=== PATIENT | male | born 1965 | race African-American/Black ===

== ENCOUNTER 2017-04-24 08:52 | Emergency (ER) | payer OTHER ==
[2017-04-24] MEDS ORDERED: methylPREDNISolone Acetate 40 mg/ml Vial ONE (09:17)
== END 2017-04-24 09:39 | disposition home or self-care (01) ==
LOC: NAV ERS 08:52
DX: T49.8X5A Adverse effect of other topical agents, initial encounter (principal); R60.0 Localized edema; E11.9 Type 2 diabetes mellitus without complications; E78.5 Hyperlipidemia, unspecified; E78.00 Pure hypercholesterolemia, unspecified; I10 Essential (primary) hypertension; F43.10 Post-traumatic stress disorder, unspecified; F17.220 Nicotine dependence, chewing tobacco, uncomplicated; Z79.84 Long term (current) use of oral hypoglycemic drugs; Z79.899 Other long term (current) drug therapy
CPT/HCPCS: 96372; J1030

== ENCOUNTER 2017-12-27 07:43 | Emergency (ER) | payer OTHER ==
[2017-12-27] MEDS ORDERED: Ondansetron HCl/PF 4 MG/2 ML Vial ONE (08:13)
[2017-12-27] MEDS ORDERED: NS 0.9% w/ 20 MEQ KCL 1,000 ML ONE (08:14)
[2017-12-27] MEDS ORDERED: Acetaminophen 500 MG TAB ONE (08:31)
[2017-12-27 08:50] LABS: #Basophils 0.1 thou/uL (0.0-0.2); #Eosinphils 0.1 thou/uL (0.0-0.7); #Lymphocytes 1.9 thou/uL (1.20-3.40); #Monocytes 0.5 thou/uL (0.11-0.59); #Neutrophils 6.2 thou/uL (1.40-6.50); %Basophils 1.3 % (0.0-1.0); %Eosinophils 1.4 % (0.0-10.0); %Lymphocytes 21.8 % (21.0-51.0); %Monocytes 5.3 % (0.0-10.0); %Neutrophils 70.1 % (42.0-75.0); Hemoglobin 14.9 g/dL (14.0-18.0); Mean Corpuscular HGB CONC 32.5 g/dL (32.0-36.0); Mean Corpuscular Hemoglobin 29.2 pg (27.0-31.0); Mean Platelet Volume 10.9 fL (7.4-10.4); Platelet Count 208 thou/uL (130-400); RBC Distribution Width 11.9 % (11.5-14.5); Red Blood Cell (RBC) Count 5.09 mill/uL (4.70-6.10); White Blood Cell (WBC) Count 8.9 thou/uL (4.8-10.8)
[2017-12-27 08:59] LABS: CKMB 1.1 ng/mL (0-6.6); Troponin I Less than 0.010 ng/mL (< 0.028)
[2017-12-27 09:03] LABS: ALT (SGPT) 27 U/L (8-55); AST (SGOT) 23 U/L (5-34); Alkaline Phosphatase 82 U/L (40-150); Anion Gap 14 mmol/L (10-20); BUN (Urea Nitrogen) 15 mg/dL (8.4-25.7); Bilirubin, Total 0.2 mg/dL (0.2-1.2); CK (CPK) 281 U/L (30-200); Calc. Creatinine Clearance 0 mL/min (70-130); Calcium 9.1 mg/dL (7.8-10.44); Carbon Dioxide 23 mmol/L (22-29); Chloride 103 mmol/L (98-107); Estimated GFR-MDRD Greater than 90; Globulin 3.4 g/dL (2.4-3.5); Glucose 242 mg/dL (70-105); Protein, Total 7.4 g/dL (6.0-8.3); Sodium 136 mmol/L (136-145)
== END 2017-12-27 09:45 | disposition home or self-care (01) ==
LOC: NAV ERS 07:43
DX: E11.65 Type 2 diabetes mellitus with hyperglycemia (principal); E78.5 Hyperlipidemia, unspecified; I10 Essential (primary) hypertension; F43.10 Post-traumatic stress disorder, unspecified; F17.220 Nicotine dependence, chewing tobacco, uncomplicated; Z79.84 Long term (current) use of oral hypoglycemic drugs; Z79.899 Other long term (current) drug therapy
CPT/HCPCS: 36416; 80053; 82010; 82550; 82553; 83880; 84484; 85025; 93005; 96361; 96374; J2405

== ENCOUNTER 2019-11-29 21:31 | Emergency (ER) | payer OTHER ==
[2019-11-29] MEDS ORDERED: Ibuprofen 200 MG TAB ONE (21:47)
[2019-11-29] MEDS ORDERED: methylPREDNISolone Acetate 40 mg/ml Vial ONE (22:00)
[2019-11-29] MEDS ORDERED: Azithromycin 250 MG TAB ONE (22:12)
== END 2019-11-29 22:21 | disposition home or self-care (01) ==
LOC: NAV ERS 21:31
DX: J20.9 Acute bronchitis, unspecified (principal); J42 Unspecified chronic bronchitis; E11.9 Type 2 diabetes mellitus without complications; E78.5 Hyperlipidemia, unspecified; E78.00 Pure hypercholesterolemia, unspecified; I10 Essential (primary) hypertension; F43.10 Post-traumatic stress disorder, unspecified; F17.210 Nicotine dependence, cigarettes, uncomplicated; Z79.899 Other long term (current) drug therapy; Z79.84 Long term (current) use of oral hypoglycemic drugs
CPT/HCPCS: 36416; 87081; 87430; 87804; 94640; 96372; J1030; J7620

== ENCOUNTER 2020-06-13 02:29 | Emergency (ER) | payer OTHER ==
[2020-06-13] MEDS ORDERED: Proparacaine 0.5% Opth 15 ML BOT ONE (02:52)
[2020-06-13] MEDS ORDERED: Fluorescein Opthalmic Strip ONE (02:52)
[2020-06-13] MEDS ORDERED: HYDROcodone/Acetaminophen 5/325 mg Tablet ONE (03:12)
[2020-06-13] MEDS ORDERED: Erythromycin Base 0.5% Oint 1 GM TUBE ONE (03:12)
== END 2020-06-13 03:40 | disposition home or self-care (01) ==
LOC: NAV ERS 02:29
DX: S05.02XA Injury of conjunctiva and corneal abrasion without foreign body, left eye, initial encounter (principal); E11.9 Type 2 diabetes mellitus without complications; E78.5 Hyperlipidemia, unspecified; E78.00 Pure hypercholesterolemia, unspecified; I10 Essential (primary) hypertension; F43.10 Post-traumatic stress disorder, unspecified; F17.220 Nicotine dependence, chewing tobacco, uncomplicated; Z79.899 Other long term (current) drug therapy
CPT/HCPCS: 99283

== ENCOUNTER 2021-03-12 11:14 | Emergency (ER) | payer MEDICARE, OTHER ==
[2021-03-12] MEDS ORDERED: Ondansetron ODT 4 MG TAB ONE (11:56)
== END 2021-03-12 12:06 | disposition home or self-care (01) ==
LOC: NAV ERS 11:14
DX: K02.9 Dental caries, unspecified (principal); E11.9 Type 2 diabetes mellitus without complications; E78.5 Hyperlipidemia, unspecified; E78.00 Pure hypercholesterolemia, unspecified; I10 Essential (primary) hypertension; Z87.891 Personal history of nicotine dependence; Z79.899 Other long term (current) drug therapy
CPT/HCPCS: 99282; Q0162

== ENCOUNTER 2021-06-13 07:34 | Emergency (ER) | payer MEDICARE | END 2021-06-13 08:05 | disposition home or self-care (01) | LOC: NAV ERS 07:34 | DX: S90.562A Insect bite (nonvenomous), left ankle, initial encounter (principal); L08.9 Local infection of the skin and subcutaneous tissue, unspecified; E11.9 Type 2 diabetes mellitus without complications; E78.5 Hyperlipidemia, unspecified; E78.00 Pure hypercholesterolemia, unspecified; I10 Essential (primary) hypertension; Z87.891 Personal history of nicotine dependence; Z79.84 Long term (current) use of oral hypoglycemic drugs; W57.XXXA Bitten or stung by nonvenomous insect and other nonvenomous arthropods, initial encounter | CPT/HCPCS: 99282 ==

== ENCOUNTER 2021-06-21 02:52 | Emergency (ER) | payer MEDICARE, OTHER ==
[2021-06-21] MEDS ORDERED: traMADol HCl 50 MG TAB ONE (03:13)
[2021-06-21 03:25] LABS: #Basophils 0.1 thou/uL (0.0-0.2); #Eosinphils 0.1 thou/uL (0.0-0.7); #Lymphocytes 2.7 thou/uL (1.20-3.40); #Monocytes 0.7 thou/uL (0.11-0.59); %Basophils 1.3 % (0.0-1.0); %Eosinophils 1.4 % (0.0-10.0); %Lymphocytes 31.6 % (21.0-51.0); %Monocytes 7.9 % (0.0-10.0); %Neutrophils 57.9 % (42.0-75.0); Hemoglobin 15.1 g/dL (14.0-18.0); Mean Corpuscular HGB CONC 32.4 g/dL (32.0-36.0); Mean Corpuscular Hemoglobin 30.6 pg (27.0-31.0); Mean Corpuscular Volume 94.4 fL (78.0-98.0); Mean Platelet Volume 11.8 fL (7.4-10.4); Platelet Count 190 thou/uL (130-400); RBC Distribution Width 11.7 % (11.5-14.5); Red Blood Cell (RBC) Count 4.93 mill/uL (4.70-6.10); White Blood Cell (WBC) Count 8.7 thou/uL (4.8-10.8)
[2021-06-21 03:40] LABS: Anion Gap 16 mmol/L (10-20); BUN (Urea Nitrogen) 7 mg/dL (8.4-25.7); Calc. Creatinine Clearance 0 mL/min (70-130); Calcium 9.2 mg/dL (7.8-10.44); Carbon Dioxide 26 mmol/L (22-29); Chloride 99 mmol/L (98-107); Glucose 385 mg/dL (70-105); Sodium 137 mmol/L (136-145); Uric Acid 4.7 mg/dL (3.5-7.2)
== END 2021-06-21 05:30 | disposition home or self-care (01) ==
LOC: NAV ERS 02:52
DX: M76.62 Achilles tendinitis, left leg (principal); L03.116 Cellulitis of left lower limb; E11.9 Type 2 diabetes mellitus without complications; E78.5 Hyperlipidemia, unspecified; E78.00 Pure hypercholesterolemia, unspecified; I10 Essential (primary) hypertension; Z87.891 Personal history of nicotine dependence; Z79.84 Long term (current) use of oral hypoglycemic drugs; Z79.899 Other long term (current) drug therapy
CPT/HCPCS: 36415; 80048; 84550; 85025

== ENCOUNTER 2021-08-07 19:03 | Emergency (ER) | payer MEDICARE, OTHER ==
[2021-08-07] MEDS ORDERED: Sodium Chloride 0.9% 1,000 ML ONE (19:30)
[2021-08-07] MEDS ORDERED: Ondansetron PF 4 MG/2 ML Vial ONE (19:30)
[2021-08-07 19:41] LABS: #Basophils 0.1 thou/uL (0.0-0.2); #Eosinphils 0.1 thou/uL (0.0-0.7); #Lymphocytes 0.8 thou/uL (1.20-3.40); #Monocytes 0.5 thou/uL (0.11-0.59); %Basophils 1.5 % (0.0-1.0); %Eosinophils 0.7 % (0.0-10.0); %Lymphocytes 9.6 % (21.0-51.0); %Monocytes 5.7 % (0.0-10.0); %Neutrophils 82.6 % (42.0-75.0); Hemoglobin 16.2 g/dL (14.0-18.0); Mean Corpuscular HGB CONC 32.3 g/dL (32.0-36.0); Mean Corpuscular Hemoglobin 30.6 pg (27.0-31.0); Mean Corpuscular Volume 94.6 fL (78.0-98.0); Mean Platelet Volume 10.6 fL (7.4-10.4); Platelet Count 202 thou/uL (130-400); RBC Distribution Width 11.5 % (11.5-14.5); Red Blood Cell (RBC) Count 5.29 mill/uL (4.70-6.10); White Blood Cell (WBC) Count 8.5 thou/uL (4.8-10.8)
[2021-08-07 19:59] LABS: ALT (SGPT) 17 U/L (8-55); AST (SGOT) 17 U/L (5-34); Albumin 4.2 g/dL (3.5-5.0); Alkaline Phosphatase 82 U/L (40-110); Anion Gap 17 mmol/L (10-20); BUN (Urea Nitrogen) 9 mg/dL (8.4-25.7); Bilirubin, Total 0.4 mg/dL (0.2-1.2); Calc. Creatinine Clearance 0 mL/min (70-130); Calcium 9.4 mg/dL (7.8-10.44); Carbon Dioxide 25 mmol/L (22-29); Chloride 98 mmol/L (98-107); Globulin 3.5 g/dL (2.4-3.5); Glucose 307 mg/dL (70-105); Potassium 3.9 mmol/L (3.5-5.1); Protein, Total 7.7 g/dL (6.0-8.3); Sodium 136 mmol/L (136-145)
[2021-08-07] MEDS ORDERED: Metoclopramide HCl 10 MG/2 ML VIAL ONE (21:41)
[2021-08-07] MEDS ORDERED: Sodium Chloride 0.9% 100 ML ONE (21:41)
[2021-08-07] MEDS ORDERED: diphenhydrAMINE 50 MG/ML VIAL ONE (21:41)
[2021-08-08 18:13] LABS: SARS-CoV-2 PCR by NAA Not Detected (NotDetected)
== END 2021-08-07 23:05 | disposition home or self-care (01) ==
LOC: NAV ERS 19:03
DX: E86.0 Dehydration (principal); B34.9 Viral infection, unspecified; E11.9 Type 2 diabetes mellitus without complications; E78.5 Hyperlipidemia, unspecified; I10 Essential (primary) hypertension; E78.00 Pure hypercholesterolemia, unspecified; Z20.822 Contact with and (suspected) exposure to COVID-19; Z87.891 Personal history of nicotine dependence; Z79.84 Long term (current) use of oral hypoglycemic drugs; Z79.899 Other long term (current) drug therapy
CPT/HCPCS: 36415; 71045; 80053; 83605; 84484; 85025; 93005; 96374; 96375; J1200; J2405; J2765; J7050; U0003; U0005

== ENCOUNTER 2021-10-30 17:52 | Emergency (ER) | payer MEDICARE ==
[2021-10-31 08:54] LABS: SARS-CoV-2 PCR by NAA Not Detected (NotDetected)
== END 2021-10-30 19:50 | disposition home or self-care (01) ==
LOC: NAV ERS 17:52
DX: J06.9 Acute upper respiratory infection, unspecified (principal); E11.9 Type 2 diabetes mellitus without complications; F17.220 Nicotine dependence, chewing tobacco, uncomplicated; E78.5 Hyperlipidemia, unspecified; I10 Essential (primary) hypertension; Z20.822 Contact with and (suspected) exposure to COVID-19
CPT/HCPCS: 36416; 99283; U0003; U0005

== ENCOUNTER 2021-11-18 18:44 | Emergency (ER) | payer MEDICARE ==
[2021-11-19 19:07] LABS: SARS-CoV-2 PCR by NAA Not Detected (NotDetected)
== END 2021-11-18 20:45 | disposition home or self-care (01) ==
LOC: NAV ERS 18:44
DX: B34.9 Viral infection, unspecified (principal); E11.9 Type 2 diabetes mellitus without complications; E78.5 Hyperlipidemia, unspecified; E78.00 Pure hypercholesterolemia, unspecified; I10 Essential (primary) hypertension; Z20.822 Contact with and (suspected) exposure to COVID-19; Z87.891 Personal history of nicotine dependence
CPT/HCPCS: 36415; 71045; 84484; 87804; 93005; U0003; U0005

== ENCOUNTER 2023-05-23 15:34 | Emergency (ER) | payer MEDICARE ==
[2023-05-23] MEDS ORDERED: Lidocaine 4% Patch TD SCH (16:00)
[2023-05-23] MEDS ORDERED: HYDROcodone/Acetaminophen 10/325 mg Tablet ONE (16:17)
[2023-05-23] MEDS ORDERED: Dexamethasone 4 MG TAB ONE (16:17)
[2023-05-24] MEDS ORDERED: Transdermal Patch Removal TOP SCH (04:00)
== END 2023-05-23 17:24 | disposition home or self-care (01) ==
LOC: NAV ERS 15:34
DX: S49.92XA Unspecified injury of left shoulder and upper arm, initial encounter (principal); M19.012 Primary osteoarthritis, left shoulder; I10 Essential (primary) hypertension; E11.9 Type 2 diabetes mellitus without complications; E78.00 Pure hypercholesterolemia, unspecified; Z87.891 Personal history of nicotine dependence; X58.XXXA Exposure to other specified factors, initial encounter; Z79.84 Long term (current) use of oral hypoglycemic drugs; Z79.899 Other long term (current) drug therapy
CPT/HCPCS: J8540

== ENCOUNTER 2024-01-23 23:15 | Emergency (ER) | payer MEDICARE ==
[2024-01-23 23:47] LABS: #Basophils 0.2 thou/uL (0.0-0.2); #Eosinphils 0.1 thou/uL (0.0-0.7); #Lymphocytes 1.5 thou/uL (1.20-3.40); #Monocytes 1.4 thou/uL (0.11-0.59); #Neutrophils 16.5 thou/uL (1.40-6.50); %Basophils 0.8 % (0.0-1.0); %Eosinophils 0.6 % (0.0-10.0); %Lymphocytes 7.5 % (21.0-51.0); %Neutrophils 84.2 % (42.0-75.0); Hematocrit 49.9 % (42.0-52.0); Hemoglobin 16.4 g/dL (14.0-18.0); Mean Corpuscular HGB CONC 32.9 g/dL (32.0-36.0); Mean Corpuscular Hemoglobin 30.8 pg (27.0-31.0); Mean Corpuscular Volume 93.9 fl (78.0-98.0); Mean Platelet Volume 10.5 fL (7.4-10.4); Platelet Count 243 10x3/uL (130-400); RBC Distribution Width 12.1 % (11.5-14.5); Red Blood Cell (RBC) Count 5.32 mill/uL (4.70-6.10); White Blood Cell (WBC) Count 19.6 10x3/uL (4.8-10.8)
[2024-01-23] MEDS ORDERED: Ondansetron PF 4 MG/2 ML Vial ONE (23:50)
[2024-01-24 00:01] LABS: ALT (SGPT) 27 U/L (8-55); AST (SGOT) 19 U/L (5-34); Albumin 4.7 g/dL (3.5-5.0); Alkaline Phosphatase 75 U/L (40-110); Anion Gap 21 mmol/L (10-20); BUN (Urea Nitrogen) 14 mg/dL (8.4-25.7); Bilirubin, Total 0.5 mg/dL (0.2-1.2); Calc. Creatinine Clearance 0 mL/min (70-130); Calcium 9.8 mg/dL (7.8-10.44); Carbon Dioxide 16 mmol/L (22-29); Chloride 104 mmol/L (98-107); Estimated GFR 82; Glucose 268 mg/dL (70-105); Lipase 16 U/L (8-78); Potassium 4.3 mmol/L (3.5-5.1); Protein, Total 8.7 g/dL (6.0-8.3); Sodium 137 mmol/L (136-145)
[2024-01-24] MEDS ORDERED: Ketorolac Tromethamine 30 MG (1 mL) VIAL ONE (00:09)
[2024-01-24] MEDS ORDERED: Sodium Chloride 0.9% 1,000 ML ONE (00:09)
[2024-01-24 00:21] LABS: Influenza A by NAA Not Detected (NotDetected); Influenza B by NAA Not Detected (NotDetected); SARS-CoV-2 NAA Rapid Test Not Detected (NotDetected)
[2024-01-24 01:41] LABS: Bilirubin Negative (Negative); Blood, Urine Negative (Negative); Clarity Clear (Clear); Glucose, Urine (Dipstick) >=1000 mg/dL (Negative); Ketone, Urine 40 mg/dL (Negative); Leukocyte Negative (Negative); Nitrite Negative (Negative); Protein, Urine (Dipstick) Negative (Neg-Trace); Specific Gravity, Urine 1.015 (1.005-1.030); Urobilinogen 0.2 mg/dL (Less than 2); pH, Urine 5.5 (5.0-9.0)
== END 2024-01-24 02:01 | disposition home or self-care (01) ==
LOC: NAV ERS 23:15
DX: A08.4 Viral intestinal infection, unspecified (principal); I10 Essential (primary) hypertension; R19.7 Diarrhea, unspecified; E11.9 Type 2 diabetes mellitus without complications; Z87.891 Personal history of nicotine dependence
CPT/HCPCS: 0240U; 80053; 81001; 82962; 83690; 85025; 36416; 96361; 96374; 96375; J1885; J2405; J7050

== ENCOUNTER 2024-02-22 16:51 | Emergency (ER) | payer MEDICARE, SELFPAY ==
[2024-02-22] MEDS ORDERED: Lidocaine 1% (PF) 30 ML VIAL ONE (17:15)
== END 2024-02-22 17:36 | disposition home or self-care (01) ==
LOC: NAV ERS 16:51
DX: K04.7 Periapical abscess without sinus (principal); E11.9 Type 2 diabetes mellitus without complications; E78.00 Pure hypercholesterolemia, unspecified; Z87.891 Personal history of nicotine dependence; I10 Essential (primary) hypertension
CPT/HCPCS: 41800; 99282; J2001

== ENCOUNTER 2024-04-24 21:36 | Emergency (ER) | payer MEDICARE, OTHER ==
[2024-04-24 22:02] LABS: #Basophils 0.1 thou/uL (0.0-0.2); #Eosinphils 0.1 thou/uL (0.0-0.7); #Lymphocytes 2.8 thou/uL (1.20-3.40); #Monocytes 0.5 thou/uL (0.11-0.59); %Basophils 1.7 % (0.0-1.0); %Eosinophils 1.4 % (0.0-10.0); %Lymphocytes 36.6 % (21.0-51.0); %Monocytes 6.8 % (0.0-10.0); %Neutrophils 53.5 % (42.0-75.0); Hematocrit 43.1 % (42.0-52.0); Hemoglobin 14.5 g/dL (14.0-18.0); Mean Corpuscular HGB CONC 33.6 g/dL (32.0-36.0); Mean Corpuscular Volume 89.2 fl (78.0-98.0); Mean Platelet Volume 9.8 fL (7.4-10.4); Platelet Count 177 10x3/uL (130-400); RBC Distribution Width 11.7 % (11.5-14.5); Red Blood Cell (RBC) Count 4.83 mill/uL (4.70-6.10); White Blood Cell (WBC) Count 7.5 10x3/uL (4.8-10.8)
[2024-04-24] MEDS ORDERED: Acetaminophen 500 MG TAB ONE (22:07)
[2024-04-24] MEDS ORDERED: Aspirin Chewable 81 MG TAB ONE (22:07)
[2024-04-24] MEDS ORDERED: Nitroglycerin 0.4 MG TAB 1 EACH ONE (22:08)
[2024-04-24 22:17] LABS: Troponin I Less than 0.010 ng/mL (< 0.028)
[2024-04-24 22:18] LABS: ALT (SGPT) 15 U/L (8-55); AST (SGOT) 17 U/L (5-34); Alkaline Phosphatase 74 U/L (40-110); Anion Gap 18 mmol/L (10-20); BUN (Urea Nitrogen) 11 mg/dL (8.4-25.7); Bilirubin, Total 0.3 mg/dL (0.2-1.2); Calc. Creatinine Clearance 0 mL/min (70-130); Calcium 9.2 mg/dL (7.8-10.44); Carbon Dioxide 20 mmol/L (22-29); Chloride 101 mmol/L (98-107); Estimated GFR 73; Globulin 3.6 g/dL (2.4-3.5); Glucose 334 mg/dL (70-105); Potassium 3.8 mmol/L (3.5-5.1); Protein, Total 7.6 g/dL (6.0-8.3); Sodium 135 mmol/L (136-145)
[2024-04-24] MEDS ORDERED: Insulin Regular, Human 100 UNIT/ML 10 ML VIAL ONE (22:29)
[2024-04-24 22:47] LABS: Bilirubin Negative (Negative); Blood, Urine Negative (Negative); Clarity Clear (Clear); Glucose, Urine (Dipstick) 500 mg/dL (Negative); Ketone, Urine Negative (Negative); Leukocyte Negative (Negative); Nitrite Negative (Negative); Protein, Urine (Dipstick) Negative (Neg-Trace)
[2024-04-24 22:51] LABS: Bacteria/HPF None Seen HPF (None Seen); CAUTI Indications for Culture Dysuria,urgency,freq; RBC/HPF None Seen HPF (0-3); Squamous Epithelial None Seen HPF (0-3); WBC/HPF None Seen HPF (0-3)
[2024-04-24 22:52] LABS: Urine Culture Reflex No No
[2024-04-24] MEDS ORDERED: Lisinopril 10 MG TAB ONE (23:59)
[2024-04-25 01:05] LABS: Troponin I 0.011 ng/mL (< 0.028)
[2024-04-25 08:34] LABS: Troponin I Less than 0.010 ng/mL (< 0.028)
== END 2024-04-25 08:49 | disposition home or self-care (01) ==
LOC: NAV ERS 21:36
DX: R07.9 Chest pain, unspecified (principal); E11.65 Type 2 diabetes mellitus with hyperglycemia; I10 Essential (primary) hypertension; E78.00 Pure hypercholesterolemia, unspecified; F17.220 Nicotine dependence, chewing tobacco, uncomplicated; Z79.899 Other long term (current) drug therapy
CPT/HCPCS: 36416; 71046; 80053; 81001; 83880; 84484; 85025; 93005; 94760; 96361; 96374; J1815

== ENCOUNTER 2024-08-05 21:42 | Emergency (ER) | payer MEDICARE, OTHER ==
[2024-08-05] MEDS ORDERED: Promethazine HCl 25 MG/ML VIAL ONE (22:11)
[2024-08-05] MEDS ORDERED: Sodium Chloride 0.9% 1,000 ML ONE (22:12)
[2024-08-05 22:28] LABS: #Basophils 0.1 thou/uL (0.0-0.2); #Eosinophils 0.1 thou/uL (0.0-0.7); #Lymphocytes 2.2 thou/uL (1.20-3.40); #Monocytes 1.1 thou/uL (0.11-0.59); #Neutrophils 6.8 thou/uL (1.40-6.50); %Basophils 0.7 % (0.0-1.0); %Eosinophils 0.9 % (0.0-10.0); %Lymphocytes 21.2 % (21.0-51.0); %Monocytes 10.5 % (0.0-10.0); %Neutrophils 66.7 % (42.0-75.0); Hematocrit 45.2 % (42.0-52.0); Hemoglobin 15.4 g/dL (14.0-18.0); Mean Corpuscular HGB CONC 34.1 g/dL (32.0-36.0); Mean Platelet Volume 10.2 fL (7.4-10.4); Platelet Count 218 10x3/uL (130-400); RBC Distribution Width 11.9 % (11.5-14.5); Red Blood Cell (RBC) Count 4.97 mill/uL (4.70-6.10); White Blood Cell (WBC) Count 10.1 10x3/uL (4.8-10.8)
[2024-08-05 22:47] LABS: ALT (SGPT) 19 U/L (8-55); AST (SGOT) 12 U/L (5-34); Albumin 3.9 g/dL (3.5-5.0); Alkaline Phosphatase 77 U/L (40-110); Anion Gap 18 mmol/L (10-20); BUN (Urea Nitrogen) 16 mg/dL (8.4-25.7); Bilirubin, Total 0.7 mg/dL (0.2-1.2); Calc. Creatinine Clearance 0 mL/min (70-130); Carbon Dioxide 21 mmol/L (22-29); Chloride 103 mmol/L (98-107); Estimated GFR 72; Globulin 3.4 g/dL (2.4-3.5); Glucose 165 mg/dL (70-105); Lipase 13 U/L (8-78); Potassium 3.3 mmol/L (3.5-5.1); Protein, Total 7.3 g/dL (6.0-8.3); Sodium 139 mmol/L (136-145); Troponin I Less than 0.010 ng/mL (< 0.028)
[2024-08-06] MEDS ORDERED: Sodium Chloride 0.9% 1,000 ML ONE (00:09)
== END 2024-08-06 01:45 | disposition home or self-care (01) ==
LOC: NAV ERS 21:42
DX: K52.9 Noninfective gastroenteritis and colitis, unspecified (principal); E86.0 Dehydration; E11.9 Type 2 diabetes mellitus without complications; I10 Essential (primary) hypertension; E78.00 Pure hypercholesterolemia, unspecified; F17.220 Nicotine dependence, chewing tobacco, uncomplicated; Z79.899 Other long term (current) drug therapy; Z79.84 Long term (current) use of oral hypoglycemic drugs
CPT/HCPCS: 80053; 82962; 83690; 84484; 85025; 93005; J2550; J7030 ×2; 36416; 96374

== ENCOUNTER 2024-08-23 14:58 | Emergency (ER) | payer MEDICARE, OTHER ==
[2024-08-23] MEDS ORDERED: Tetracaine 0.5% PF 4 ML BOT ONE (15:21)
[2024-08-23] MEDS ORDERED: Fluorescein Opthalmic Strip ONE (15:21)
== END 2024-08-23 15:40 | disposition home or self-care (01) ==
LOC: NAV ERS 14:58
DX: S05.01XA Injury of conjunctiva and corneal abrasion without foreign body, right eye, initial encounter (principal); I10 Essential (primary) hypertension; E11.9 Type 2 diabetes mellitus without complications; E78.00 Pure hypercholesterolemia, unspecified; F17.220 Nicotine dependence, chewing tobacco, uncomplicated; Z79.899 Other long term (current) drug therapy; X58.XXXA Exposure to other specified factors, initial encounter
CPT/HCPCS: 99283

== ENCOUNTER 2024-09-07 13:18 | Emergency (ER) | payer MEDICARE ==
[~2024-09-07 13:18] MED LIST: Iopamidol 370 76% 100 ML VIAL ONE
[2024-09-07] MEDS ORDERED: Sodium Chloride 0.9% 1,000 ML ONE (14:35)
[2024-09-07] MEDS ORDERED: Promethazine HCl 25 MG/ML VIAL ONE (14:35)
[2024-09-07 14:43] LABS: #Basophils 0.2 thou/uL (0.0-0.2); #Eosinophils 0.1 thou/uL (0.0-0.7); #Monocytes 1.2 thou/uL (0.11-0.59); #Neutrophils 18.5 thou/uL (1.40-6.50); %Basophils 0.9 % (0.0-1.0); %Eosinophils 0.4 % (0.0-10.0); %Lymphocytes 4.9 % (21.0-51.0); %Monocytes 5.7 % (0.0-10.0); %Neutrophils 88.1 % (42.0-75.0); Hemoglobin 16.8 g/dL (14.0-18.0); Mean Corpuscular Hemoglobin 30.1 pg (27.0-31.0); Mean Corpuscular Volume 91.3 fl (78.0-98.0); Mean Platelet Volume 9.1 fL (7.4-10.4); Platelet Count 286 10x3/uL (130-400); RBC Distribution Width 11.8 % (11.5-14.5); Red Blood Cell (RBC) Count 5.58 mill/uL (4.70-6.10)
[2024-09-07 14:50] LABS: ALT (SGPT) 21 U/L (8-55); AST (SGOT) 15 U/L (5-34); Albumin 4.3 g/dL (3.5-5.0); Alkaline Phosphatase 88 U/L (40-110); Anion Gap 15 mmol/L (10-20); BUN (Urea Nitrogen) 16 mg/dL (8.4-25.7); Bilirubin, Total 0.6 mg/dL (0.2-1.2); Calc. Creatinine Clearance 0 mL/min (70-130); Calcium 9.8 mg/dL (7.8-10.44); Carbon Dioxide 21 mmol/L (22-29); Chloride 106 mmol/L (98-107); Estimated GFR 99; Globulin 3.6 g/dL (2.4-3.5); Glucose 194 mg/dL (70-105); Lipase 20 U/L (8-78); Potassium 4.5 mmol/L (3.5-5.1); Protein, Total 7.9 g/dL (6.0-8.3); Sodium 137 mmol/L (136-145)
[2024-09-07 14:56] LABS: Bilirubin Negative (Negative); Blood, Urine Negative (Negative); Glucose, Urine (Dipstick) >=1000 mg/dL (Negative); Ketone, Urine 15 mg/dL (Negative); Leukocyte Negative (Negative); Nitrite Negative (Negative); Protein, Urine (Dipstick) Negative (Neg-Trace); Urobilinogen 0.2 mg/dL (Less than 2)
[2024-09-07 14:58] LABS: Clarity Hazy (Clear)
[2024-09-07 15:09] LABS: CAUTI Indications for Culture Pelvic or flank pain; Squamous Epithelial 0-3 HPF (0-3); WBC/HPF None Seen HPF (0-3)
[2024-09-07 15:10] LABS: Urine Culture Reflex No No
== END 2024-09-07 16:51 | disposition home or self-care (01) ==
LOC: NAV ERS 13:18
DX: K52.9 Noninfective gastroenteritis and colitis, unspecified (principal); E11.9 Type 2 diabetes mellitus without complications; I10 Essential (primary) hypertension; E78.00 Pure hypercholesterolemia, unspecified; F17.210 Nicotine dependence, cigarettes, uncomplicated; F17.220 Nicotine dependence, chewing tobacco, uncomplicated; Z79.84 Long term (current) use of oral hypoglycemic drugs; Z79.899 Other long term (current) drug therapy
CPT/HCPCS: 36416; 74177; 80053; 81001; 83690; 85025; 96361; 96374; J2550; J7030; Q9967

== ENCOUNTER 2024-09-28 07:32 | Emergency (ER) | payer MEDICARE ==
[2024-09-28] MEDS ORDERED: Ondansetron PF 4 MG/2 ML Vial ONE (08:12)
[2024-09-28] MEDS ORDERED: Lactated Ringer's 1,000 ML ONE ×2 (08:12→09:21)
[2024-09-28 08:41] LABS: #Lymphocytes 0.9 thou/uL (1.20-3.40); #Monocytes 1.2 thou/uL (0.11-0.59); #Neutrophils 15.1 thou/uL (1.40-6.50); %Basophils 0.6 % (0.0-1.0); %Eosinophils 0.3 % (0.0-10.0); %Monocytes 7.1 % (0.0-10.0); %Neutrophils 87.1 % (42.0-75.0); Hemoglobin 17.2 g/dL (14.0-18.0); Manual Diff?? NO; Mean Corpuscular Hemoglobin 29.7 pg (27.0-31.0); Mean Corpuscular Volume 89.9 fl (78.0-98.0); Mean Platelet Volume 8.6 fL (7.4-10.4); Platelet Count 252 10x3/uL (130-400); RBC Distribution Width 11.5 % (11.5-14.5); Red Blood Cell (RBC) Count 5.78 mill/uL (4.70-6.10); White Blood Cell (WBC) Count 17.3 10x3/uL (4.8-10.8)
[2024-09-28 08:42] LABS: #Basophils 0.1 thou/uL (0.0-0.2); #Eosinophils 0.1 thou/uL (0.0-0.7)
[2024-09-28 09:05] LABS: ALT (SGPT) 20 U/L (8-55); AST (SGOT) 17 U/L (5-34); Albumin 4.5 g/dL (3.5-5.0); Alkaline Phosphatase 85 U/L (40-110); Anion Gap 16 mmol/L (10-20); BUN (Urea Nitrogen) 14 mg/dL (8.4-25.7); Bilirubin, Total 0.5 mg/dL (0.2-1.2); Calc. Creatinine Clearance 0 mL/min (70-130); Calcium 9.9 mg/dL (7.8-10.44); Carbon Dioxide 18 mmol/L (22-29); Chloride 106 mmol/L (98-107); Estimated GFR 85; Globulin 4.1 g/dL (2.4-3.5); Glucose 233 mg/dL (70-105); Potassium 3.4 mmol/L (3.5-5.1); Protein, Total 8.6 g/dL (6.0-8.3); Sodium 137 mmol/L (136-145)
[2024-09-28 09:37] LABS: Lipase 22 U/L (8-78)
[2024-09-28 09:49] LABS: Base Excess-Venous -2.9 mmol/L (-2.0 to 3.0); Bicarbonate (HCO3v) 21.6 mmol/L (22.0-28.0); CO2 Tension (PvCO2) 36.5 mmHg (42.0-51.0); Hemoglobin - Calc 16.7 g/dL (14.0-18.0); Sodium 140 mmol/L (138-145); vO2 Saturation-calc 97.4 % (60.0-85.0)
[2024-09-28 09:50] LABS: Calcium, Ionized 1.17 mmol/L (1.15-1.33); Chloride 109 mmol/L (98-107); T. Carbon Dioxide 22.7 mmol/L (22.0-28.0)
== END 2024-09-28 10:41 | disposition home or self-care (01) ==
LOC: NAV ERS 07:32
DX: R19.7 Diarrhea, unspecified (principal); R11.2 Nausea with vomiting, unspecified; E11.9 Type 2 diabetes mellitus without complications; I10 Essential (primary) hypertension; E78.5 Hyperlipidemia, unspecified; F17.210 Nicotine dependence, cigarettes, uncomplicated; E78.00 Pure hypercholesterolemia, unspecified; Z79.85 Long-term (current) use of injectable non-insulin antidiabetic drugs; Z79.899 Other long term (current) drug therapy
CPT/HCPCS: 36415; 80053; 82010; 82330; 82803; 83605; 83690; 85025; 96361; 96374; J2405; J7120

== ENCOUNTER 2024-11-18 13:27 | Emergency (ER) | payer MEDICARE, OTHER ==
[2024-11-18] MEDS ORDERED: Ondansetron ODT 4 MG TAB ONE (13:51)
[2024-11-18] MEDS ORDERED: Sodium Chloride 0.9% 1,000 ML ONE ×2 (14:06→14:57)
[2024-11-18] MEDS ORDERED: Promethazine HCl 25 MG/ML VIAL ONE (14:06)
[2024-11-18 14:29] LABS: Base Excess-Venous -5.8 mmol/L (-2.0 to 3.0); Bicarbonate (HCO3v) 17.1 mmol/L (22.0-28.0); Calcium, Ionized 1.15 mmol/L (1.15-1.33); Chloride 106 mmol/L (98-107); Hemoglobin - Calc 18.7 g/dL (14.0-18.0); Potassium 3.9 mmol/L (3.5-5.1); Sodium 138 mmol/L (138-145); vO2 Saturation-calc 97.2 % (60.0-85.0)
[2024-11-18 14:37] LABS: ALT (SGPT) 22 U/L (Less than 45); AST (SGOT) 21 U/L (11-34); Albumin 4.8 g/dL (3.1-4.5); Alkaline Phosphatase 100 U/L (40-110); Anion Gap 18 mmol/L (10-20); BUN (Urea Nitrogen) 15 mg/dL (8.4-25.7); Bilirubin, Total 0.5 mg/dL (0.3-1.2); Calc. Creatinine Clearance 0 mL/min (70-130); Calcium 10.4 mg/dL (7.8-10.44); Carbon Dioxide 16 mmol/L (22-29); Chloride 106 mmol/L (98-107); Estimated GFR 84; Globulin 3.7 g/dL (2.4-3.5); Glucose 196 mg/dL (70-105); Lipase 22 U/L (8-78); Protein, Total 8.5 g/dL (6.0-8.3); Sodium 136 mmol/L (136-145)
[2024-11-18 14:39] LABS: #Basophils 0.2 thou/uL (0.0-0.2); #Lymphocytes 2.2 thou/uL (1.20-3.40); #Monocytes 1.1 thou/uL (0.11-0.59); #Neutrophils 13.3 thou/uL (1.40-6.50); %Eosinophils 0.2 % (0.0-10.0); %Lymphocytes 13.3 % (21.0-51.0); %Monocytes 6.6 % (0.0-10.0); %Neutrophils 78.9 % (42.0-75.0); Hemoglobin 16.8 g/dL (14.0-18.0); Mean Corpuscular HGB CONC 32.3 g/dL (32.0-36.0); Mean Corpuscular Hemoglobin 28.5 pg (27.0-31.0); Mean Corpuscular Volume 88.1 fl (78.0-98.0); Mean Platelet Volume 8.1 fL (7.4-10.4); Platelet Count 278 10x3/uL (130-400); RBC Distribution Width 11.4 % (11.5-14.5); White Blood Cell (WBC) Count 16.9 10x3/uL (4.8-10.8)
[2024-11-18] MEDS ORDERED: Sodium Chloride 0.9% 500 ML ONE (14:57)
[2024-11-18] MEDS ORDERED: Sodium Chloride 0.9% 100 ML ONE (14:57)
[2024-11-18] MEDS ORDERED: Cefepime 2 GM VIAL ONE (14:57)
[2024-11-18] MEDS ORDERED: metroNIDAZOLE 500 MG (100 mL) BAG ONE (15:46)
== END 2024-11-18 18:10 | disposition short-term general hospital (02) ==
LOC: NAV ERS 13:27
DX: A41.9 Sepsis, unspecified organism (principal); K52.9 Noninfective gastroenteritis and colitis, unspecified; E11.9 Type 2 diabetes mellitus without complications; I10 Essential (primary) hypertension; E78.00 Pure hypercholesterolemia, unspecified; F17.220 Nicotine dependence, chewing tobacco, uncomplicated; Z79.84 Long term (current) use of oral hypoglycemic drugs; Z79.899 Other long term (current) drug therapy
CPT/HCPCS: 74177; 80053; 82010; 82330; 82435; 82803; 83605; 83690; 84132; 84295; 85014; 85025; 87040; 96361; 96365; 96367; 96375; J0692; J2550; J7030; Q0162